=== PATIENT | male | born 1995 | race American Indian/Alaskan Native ===

== ENCOUNTER 2017-01-19 10:51 | Emergency (ER) | payer SELFPAY ==
[2017-01-19 12:46] VITALS: BP 158/88
--- NOTE | 2017-01-19 13:44 | Emergency Department Report ---
Abscess Boil HPI - HPI Chief Complaint: Skin/Abscess/Foreign Body Stated Complaint: INSECT BITE Time Seen by Provider: 01/19/17 13:24 Duration: 3 Days Location: Other (forehead) Severity: Mild (2/10 and feels sore) History: Yes Pain (2/10 and sore), No Fever, No Purulent Drainage (redness and swelling to 4 had), No Numbness, No Foreign Body, No Previous History, No Insect Bite ( does not know what caused abscess to forehead.) HPI: Patient here complaining that he has redness and to forehead that started 3 days ago. No [id number] medication use. Pain is 310 and sore. Denies any fever or chills. Denies similar episode. He denies any medical problems. He reports that his tetanus vaccine is up-to-date. Home Medications: Previous Rx's Medication Instructions Recorded Last Taken Type Ibuprofen [Motrin] 600 mg PO Q8H PRN 4 Days #12 tablet 01/19/17 Unknown Rx Sulfamethoxazole/Trimethoprim 1 each PO BID 10 Days #20 tablet 01/19/17 Unknown Rx [Bactrim DS TAB] Allergies/Adverse Reactions: Allergies Allergy/AdvReac Type Severity Reaction Status Date / Time No Known Allergies Allergy Unverified 01/19/17 15:16 ED Review of Systems ROS: Stated complaint: INSECT BITE Other details as noted in HPI Comment: All other systems reviewed and negative Constitutional: no symptoms reported Respiratory: no symptoms reported Cardiovascular: denies: chest pain, palpitations, dyspnea on exertion, edema, syncope Gastrointestinal: denies: abdominal pain, nausea, vomiting, diarrhea Musculoskeletal: denies: back pain, joint swelling, arthralgia, myalgia Skin: rash (redness and swelling to forehead these) Neurological: denies: headache, weakness, numbness, paresthesias, abnormal gait , vertigo ED Past Medical Hx - Past Medical History Previous Medical History?: No - Surgical History Past Surgical History?: No - Family History Family history: no significant - Social History Smoking Status: Current Every Day Smoker Substance Use Type: None - Medications Home Medications: Home Medications Medication Instructions Recorded Confirmed Last Taken Type Ibuprofen [Motrin] 600 mg PO Q8H PRN 4 Days #12 tablet 01/19/17 Unknown Rx Sulfamethoxazole/Trimethoprim 1 each PO BID 10 Days #20 tablet 01/19/17 Unknown Rx [Bactrim DS TAB] ED Abscess Boil Physical Exam - Exam General: Vital signs noted. No distress. Alert and acting appropriately. This is 21-year-old male well-nourished well-developed in no acute distress. Front/Back of Body, Lg (Color): 1 - 1 cm indurated, fluctuant, erythema and tender to palpate to left forehead. No drainage noted. Size: 1 cm Exam: Yes Tenderness (left forehead), Yes Fluctuance (left forehead), Yes Surrounding Cellulites/Erythema (left forehead), Yes Normal Neurologic Exam, Yes Normal Circulation, No Lymphangitis, No Crepitation, No Heart Murmur Exam: Mouth: Moist, no pharyngeal erythema or exudate. Uvula is midline, tongue is normal and oral airways patent. Neck: [place], full range of motion, no C-spine tenderness, no muscular tenderness and no adenopathy. Lungs: Clear to auscultate bilaterally, no rhonchi wheezes or rales. Normal work of breathing. CV: S1S2. Regular rate/ rhythm and no murmur. Extremity: No Clubbing, cyanosis or edema. The pulses to all extremities and no neurovascular compromise. PSYCH: Normal mood and behavior I & D Note - I & D Note I & D Note: Procedure note: Patient with simple abscess that was incision and drained. Procedure done under sterile procedure. Area cleansed with iodine and normal saline. Topical lidocaine placed site for anesthesia. #18-gauge needle used to make small opening in the center of abscess. Expressed a small amount of serosang pus from site. Area cleansed with normal saline and sterile dry dressing placed inside. Patient tolerated procedure well. ED Course Vital Signs 01/19/17 12:44 Temperature 98.9 F Pulse Rate 67 Respiratory 20 Rate Blood Pressure 158/88 O2 Sat by Pulse 100 Oximetry - Reevaluation(s) Reevaluation #1: 01/19/17 15:13 Patient stable. See procedure note for incision and drainage Critical care attestation.: If time is entered above; I have spent that time in minutes in the direct care of this critically ill patient, excluding procedure time. ED Medical Decision Making - Medical Decision Making ED course: Patient with small indurated fluctuant abscess to left forehead. He is here for treatment. Physical findings for 1 cm indurated, erythema, fluctuant area to left forehead. Small abscess incision and drained. Patient given Percocet 5/325 2 tablets by mouth for postprocedure pain. See procedure note for details. Patient reports that his tetanus shot is up-to-date. I discussed with him that he needs to place warm compresses the site 3-4 times a day and take antibiotic as prescribed. I expressed to him if area becomes increase in redness, swelling and pain, if he develops fever or chills to return to the emergency room otherwise follow-up with his primary care doctor in 4 days or if he does not have a primary care physician follow-up with [facility]..prescription for Motrin and Bactrim DS ED Disposition Clinical Impression: Simple abscess, Encounter for incision and drainage procedure, Cellulitis of forehead Disposition: DC-01 TO HOME OR SELFCARE Is pt being admited?: No Does the pt Need Aspirin: No Condition: Stable Instructions: Cellulitis (ED), Abscess (ED) Additional Instructions: keep affected area clean and dry Place warm compresses to affected site 3-4 times a day Please follow up with primary care or at [facility] in 4 days Take antibiotic as prescribed Prescriptions: Ibuprofen [Motrin] 600 mg PO Q8H PRN 4 Days #12 tablet PRN Reason: Pain Sulfamethoxazole/Trimethoprim [Bactrim DS TAB] 1 each PO BID 10 Days #20 tablet Referrals: PRIMARY CARE [Primary Care Provider] - 01/23/17 [facility] [Outside[facility] - 01/23/17 Forms: Work/School Release Form(ED)
[2017-01-19] MEDS ORDERED: PERCOCET 5/325 PO ONE (15:16)
== END 2017-01-19 15:33 | disposition home or self-care (01) ==
LOC: ED 10:51
DX: L02.01 Cutaneous abscess of face (principal); L03.211 Cellulitis of face; F17.200 Nicotine dependence, unspecified, uncomplicated

== ENCOUNTER 2018-02-26 15:45 | Emergency (ER) | payer SELFPAY ==
--- NOTE | 2018-02-26 18:43 | Emergency Department Report ---
HPI - General Chief Complaint: Dental/Oral Time Seen by Provider: 02/26/18 18:18 - HPI HPI: This is a 22-year-old male here report that he is having right lower dental pain 2 days. Patient reports that he was seen by a dentist and has an appointment on Thursday but reports that the medication that he gave him which include Tylenol 3 and amoxicillin that his pain is still 10 out of 10. He said he took some [id number] Motrin but is not helping. Denies any fever or chills. Denies sore throat or drooling. Denies any cough, nasal congestion or runny nose. Denies any shortness of breath. Pain is constant and no alleviating factors. Exacerbated by talking and eating. ED Past Medical Hx - Past Medical History Previous Medical History?: No - Surgical History Past Surgical History?: No - Family History Family history: hypertension - Social History Smoking Status: Current Every Day Smoker Substance Use Type: Marijuana - Medications Home Medications: Home Medications Medication Instructions Recorded Confirmed Last Taken Type Ibuprofen [Motrin] 600 mg PO Q8H PRN 4 Days #12 tablet 01/19/17 Unknown Rx Sulfamethoxazole/Trimethoprim 1 each PO BID 10 Days #20 tablet 01/19/17 Unknown Rx [Bactrim DS TAB] Ibuprofen [Motrin] 800 mg PO Q8HR PRN #15 tablet 02/26/18 Unknown Rx oxyCODONE /ACETAMINOPHEN [Percocet 1 tab PO Q6HR PRN #15 tablet 02/26/18 Unknown Rx 5/325] ED Review of Systems ROS: Stated complaint: TOOTHACHE Other details as noted in HPI Constitutional: denies: chills, fever Eyes: denies: eye discharge ENT: dental pain. denies: ear pain, throat pain, congestion Respiratory: denies: cough, shortness of breath, wheezing Cardiovascular: denies: chest pain, palpitations, dyspnea on exertion, edema, syncope Gastrointestinal: denies: abdominal pain, nausea, vomiting Musculoskeletal: denies: back pain, joint swelling, arthralgia, myalgia Skin: denies: rash Neurological: denies: headache Physical Exam - Physical Exam Vital Signs: Vital Signs 02/26/18 15:48 Temperature 98.2 F Pulse Rate 60 Respiratory 20 Rate Blood Pressure 164/97 O2 Sat by Pulse 99 Oximetry General: This is a 22-year-old male well-nourished well-developed in no acute distress Physical Exam: Head: Normocephalic atraumatic Ears:BIateral TM pearly dominguez . Jamal EAC with normal exam. No mastoid bone tenderness. Mouth: Moist, no pharyngeal erythema or exudate . Tongue is normal and oral airways patent. Uvula is midline. No abscess noted but noted dental tenderness around tooth # 30, 32. Noted dental cavities to several teeth without any pulp exposure. Lip is normal. Neck: Nontender to palpate, supple, normal range of motion. No adenopathy. No c- spine tenderness. Nose: Bilateral nasal mucosa normal exam maxillary and frontal sinuses non- tender to palpate. Eyes: Bilateral Sclerae and conjunctiva without injection. Bilateral pupils equal and reactive to light. Bilateral lids are normal. Normal accommodation.BEOMI Lungs: Clear to auscultate bilaterally, no rhonchi wheezes or rales. Normal work of breathing and no chest wall tenderness CV: S1, S2. Regular rate and rhythm negative murmur. Capillary refill is less than 3 seconds Abdomen: Nontender to palpation in all quadrants: No guarding or rebound tenderness. Positive bowel sounds in all quadrants Extremity: No clubbing, cyanosis or edema. +2 pulses in all extremities and no neurovascular compromise Skin: Clean dry and intact, no rashes or lesions ED Course Vital Signs 02/26/18 15:48 Temperature 98.2 F Pulse Rate 60 Respiratory 20 Rate Blood Pressure 164/97 O2 Sat by Pulse 99 Oximetry - Reevaluation(s) Reevaluation #1: 02/26/18 19:15 Patient stable throughout ED course. ED Medical Decision Making - Medical Decision Making This is a 22-year-old male here after seen by his dentist gave him amoxicillin and Tylenol No. 3. He said Tylenol 3 is not touching his pain. Patient with dental cavities and tenderness around tooth #30 and 32. He has no fluctuance or indurated area noted. I discussed the patient's that I will change his pain medication to [place] and he needs to not take Tylenol No. 3 as both medications together can cause drowsiness and decrease in respiration. Nondistended. I referred patient and also to [facility] at [facility] if he does not get in with his dentist. He voiced understanding. Patient discharged from ED in stable condition with prescription for Motrin and [place] and to continue his amoxicillin and discard Tylenol 3. Critical care attestation.: If time is entered above; I have spent that time in minutes in the direct care of this critically ill patient, excluding procedure time. ED Disposition Clinical Impression: Tooth ache, Dental caries Disposition: TO HOME OR SELFCARE Is pt being admited?: No Does the pt Need Aspirin: No Condition: Stable Instructions: Dental Caries (ED), Toothache (ED) Additional Instructions: See referrals to dental clinic. Take [place] 5/325 mg as prescribed. Do not drive or operate heavy machinery while taking this medication. Please discard or not take Tylenol 3 if you have any more as this one taken with [place] can cause severe drowsiness. Take Motrin for mild to moderate pain and [place] for severe pain Continue to take amoxicillin as prescribed by your dentist. Prescriptions: Ibuprofen [Motrin] 800 mg PO Q8HR PRN #15 tablet PRN Reason: mild to moderate pain oxyCODONE /ACETAMINOPHEN [Percocet 5/325] 1 tab PO Q6HR PRN #15 tablet PRN Reason: severe pain [facility]: [facility] [Outside] - 03/01/[address] [facility] [Outside] - 03/03/18 PRIMARY CARE, [Primary Care Provider] - 03/01/18 Forms: Work/School Release Form(ED)
== END 2018-02-26 19:05 | disposition home or self-care (01) ==
LOC: ED 15:45
CPT/HCPCS: 99282

== ENCOUNTER 2021-01-18 23:39 | Emergency (ER) | payer SELFPAY ==
[2021-01-19 00:45] VITALS: BP 187/108
[2021-01-19] MEDS ORDERED: HYDROcodone/ACETAMINOPHEN 5-325 MG TAB PO ONE (01:43)
[2021-01-19] MEDS ORDERED: AMOXICILLIN/K CLAV 875/125MG TAB PO ONE (01:43)
[2021-01-19] MEDS ORDERED: IBUPROFEN 600 MG TAB PO ONE (01:43)
[2021-01-19] MEDS ORDERED: ONDANSETRON 4 MG ODT TAB PO ONE (01:43)
--- NOTE | 2021-01-19 01:44 | Emergency Department Report ---
ED General Adult HPI - General Chief complaint: Dental/Oral Stated complaint: TOOTH PAIN PUI?: No Source: patient Mode of arrival: Ambulatory Limitations: No Limitations - History of Present Illness Initial comments: Patient is a 25-year-old -[place] male with no past medical history presents to the ED with complaint of acute onset persistent painful swollen left maxillary gingiva and premolar and molar toothache for the last 2 days. Patient states that he has been taking [id number] medications with no relief. Patient states that the he was unable to sleep especially in the last 6 hours because of worsening pain. Patient denies fever, chills, cough, sore throat, traumatic injury, headache, chest pain, shortness of breath, dizziness, syncope, abdominal pain, nausea and vomiting or neck pain. MD Complaint: left maxillary premolar and molar toothache; swollen gums -: Sudden, days(s) (2) Location: mouth Radiation: non-radiation Severity scale (0 -10): 8 Quality: aching, sharp Consistency: constant Improves with: none Worsens with: eating Associated Symptoms: denies: confusion, chest pain, cough, diaphoresis, fever/chills, headaches, loss of appetite, malaise, nausea/vomiting, rash, seizure, shortness of breath, syncope, other Treatments Prior to Arrival: NSAID - Related Data Previous Rx's Medication Instructions Recorded Last Taken Type Ibuprofen [Motrin] 600 mg PO Q8H PRN 4 Days #12 tablet 01/19/17 Unknown Rx Sulfamethoxazole/Trimethoprim 1 each PO BID 10 Days #20 tablet 01/19/17 Unknown Rx [Bactrim DS TAB] Ibuprofen [Motrin] 800 mg PO Q8HR PRN #15 tablet 02/26/18 Unknown Rx oxyCODONE /ACETAMINOPHEN [Percocet 1 tab PO Q6HR PRN #15 tablet 02/26/18 Unknown Rx 5/325] Clindamycin [Clindamycin CAP] 300 mg PO Q8HR #60 capsule 01/19/21 Unknown Rx Ketorolac [Toradol] 10 mg PO Q8H PRN #20 tablet 01/19/21 Unknown Rx traMADoL [Ultram] 50 mg PO Q6HR PRN #10 tablet 01/19/21 Unknown Rx Allergies Allergy/AdvReac Type Severity Reaction Status Date / Time No Known Allergies Allergy Unverified 01/19/17 15:16 ED Review of Systems ROS: Stated complaint: TOOTH PAIN Other details as noted in HPI Constitutional: denies: chills, fever Eyes: denies: eye pain, eye discharge, vision change ENT: dental pain (Left maxillary premolar molar toothache; painful swollen left maxillary gingiva). denies: ear pain, throat pain Respiratory: denies: cough, shortness of breath, wheezing Cardiovascular: denies: chest pain, palpitations Endocrine: no symptoms reported Gastrointestinal: denies: abdominal pain, nausea, diarrhea Genitourinary: denies: urgency, dysuria Musculoskeletal: denies: back pain, joint swelling, arthralgia Skin: denies: rash, lesions Neurological: denies: headache, weakness, paresthesias Psychiatric: denies: anxiety, depression Hematological/Lymphatic: denies: easy bleeding, easy bruising ED Past Medical Hx - Past Medical History Previous Medical History?: No - Surgical History Past Surgical History?: No - Social History Smoking Status: Current Every Day Smoker Substance Use Type: None - Medications Home Medications: Home Medications Medication Instructions Recorded Confirmed Last Taken Type Ibuprofen [Motrin] 600 mg PO Q8H PRN 4 Days #12 tablet 01/19/17 Unknown Rx Sulfamethoxazole/Trimethoprim 1 each PO BID 10 Days #20 tablet 01/19/17 Unknown Rx [Bactrim DS TAB] Ibuprofen [Motrin] 800 mg PO Q8HR PRN #15 tablet 02/26/18 Unknown Rx oxyCODONE /ACETAMINOPHEN [Percocet 1 tab PO Q6HR PRN #15 tablet 02/26/18 Unknown Rx 5/325] Clindamycin [Clindamycin CAP] 300 mg PO Q8HR #60 capsule 01/19/21 Unknown Rx Ketorolac [Toradol] 10 mg PO Q8H PRN #20 tablet 01/19/21 Unknown Rx traMADoL [Ultram] 50 mg PO Q6HR PRN #10 tablet 01/19/21 Unknown Rx ED Physical Exam - General Limitations: No Limitations General appearance: alert, in no apparent distress - Head Head exam: Present: atraumatic, normocephalic, normal inspection - Eye Eye exam: Present: normal appearance, PERRL, EOMI Pupils: Present: normal accommodation - ENT ENT exam: Present: mucous membranes moist, TM's normal bilaterally, normal external ear exam, other (Palpable left maxillary premolar and molar teeth tenderness; severe tenderness of left maxillary gingiva with mild swelling) - Neck Neck exam: Present: normal inspection, full ROM. Absent: tenderness - Respiratory Respiratory exam: Present: normal lung sounds bilaterally. Absent: respiratory distress, wheezes, rales, rhonchi, chest wall tenderness, accessory muscle use, decreased breath sounds - Cardiovascular Cardiovascular Exam: Present: normal rhythm, bradycardia, normal heart sounds. Absent: systolic murmur, diastolic murmur, rubs, gallop - GI/Abdominal GI/Abdominal exam: Present: soft, normal bowel sounds. Absent: tenderness, guarding, rigid, hyperactive bowel sounds, hypoactive bowel sounds, organomegaly - Extremities Exam Extremities exam: Present: normal inspection, full ROM, normal capillary refill. Absent: tenderness, pedal edema - Back Exam Back exam: Present: normal inspection, full ROM. Absent: tenderness, CVA tenderness (R), muscle spasm, vertebral tenderness - Neurological Exam Neurological exam: Present: alert, oriented X3, CN II-XII intact, normal gait, reflexes normal - Psychiatric Psychiatric exam: Present: normal affect, normal mood - Skin Skin exam: Present: warm, dry, intact, normal color. Absent: rash ED Course Vital Signs 01/19/21 00:42 Temperature 98.5 F Pulse Rate 58 L Respiratory 18 Rate Blood Pressure 187/108 O2 Sat by Pulse 100 Oximetry ED Medical Decision Making - Medical Decision Making This is a 25-year-old -[place] male with no past medical history presents to the ED with complaint of acute onset persistent painful swollen left maxillary gingiva and premolar and molar toothache for the last 2 days. Patient states that he has been taking [id number] medications with no relief. Patient states that the he was unable to sleep especially in the last 6 hours because of worsening pain. In the ED, patient is alert and oriented x3 and is not in distress. Patient was treated for pain in the ED and discharged home on pain medication and antibiotics and advised to follow-up with his dentist in 7 to 10 days for reevaluation. Patient was advised return to the ED immediately if symptoms get worse. - Differential Diagnosis Dental abscess; dental caries; acute gingivitis Critical care attestation.: If time is entered above; I have spent that time in minutes in the direct care of this critically ill patient, excluding procedure time. ED Disposition Clinical Impression: Dental abscess, Acute gingivitis, Dental caries Disposition: 01 HOME / SELF CARE / HOMELESS Is pt being admited?: No Does the pt Need Aspirin: No Condition: Stable Instructions: Dental Abscess, [id number], Trench Mouth Additional Instructions: Take medication with food, drink plenty of fluids and follow-up with your dentist in 7 to 10 days for reevaluation. Return to the ED immediately if symptoms get worse. Prescriptions: Clindamycin [Clindamycin CAP] 300 mg PO Q8HR #60 capsule Ketorolac [Toradol] 10 mg PO Q8H PRN #20 tablet PRN Reason: Pain traMADoL [Ultram] 50 mg PO Q6HR PRN #10 tablet PRN Reason: Pain Referrals: [facility] [Outside] - 7-10 days Time of Disposition: 01:41 Print Language: SINHAL[place]
== END 2021-01-19 02:30 | disposition home or self-care (01) ==
LOC: ED 23:39
DX: K04.7 Periapical abscess without sinus (principal); K05.00 Acute gingivitis, plaque induced; K02.9 Dental caries, unspecified; F17.200 Nicotine dependence, unspecified, uncomplicated; Z79.899 Other long term (current) drug therapy
CPT/HCPCS: 99282; J3490; Q0162